=== PATIENT | male | born 1995 | race Two or more races ===

== ENCOUNTER 2019-12-09 17:14 | Emergency (ER) | payer MEDICAID, OTHER, SELFPAY ==
[~2019-12-09] VITALS: Ht 175.3 cm; Wt 118.0 kg
--- NOTE | 2019-12-09 18:09 | NUR ---
IMPROVEMENT INTERN: PT AMBULATORY TO ROOM FROM LOBBY
[2019-12-09] MEDS ORDERED: KETOROLAC 30 MG/1 ML IVPush ONE (19:00)
[2019-12-09] MEDS ORDERED: DIPHENHYDRAMINE 50 MG/ML, 1ML IVPush ONE (19:00)
[2019-12-09] MEDS ORDERED: SODIUM CHLORIDE FLUSH 10ML SYR IVF ONE (19:00)
[2019-12-09] MEDS ORDERED: METOCLOPRAMIDE 5 MG/ML, 2ML IVPush ONE (19:00)
[2019-12-09] MEDS ORDERED: METOCLOPRAMIDE 5 MG/ML, 2ML ONE (19:08)
[2019-12-09] MEDS ORDERED: DIPHENHYDRAMINE 50 MG/ML, 1ML ONE (19:08)
[2019-12-09] MEDS ORDERED: KETOROLAC 30 MG/1 ML ONE (19:08)
[2019-12-09 21:41] VITALS: BP 129/76
== END 2019-12-09 21:43 ==
LOC: ED 21:17
DX: G44.219 Episodic tension-type headache, not intractable (principal); M54.2 Cervicalgia; H53.8 Other visual disturbances
CPT/HCPCS: 72050; 96374; 96375; 99284; J1200; J1885; J2765